=== PATIENT | female | born 1970 | race African-American/Black ===

== ENCOUNTER 2019-10-21 13:02 | Emergency (ER) | payer OTHER ==
[~2019-10-21] VITALS: Ht 160 cm; Wt 127.5 kg
[2019-10-21 13:16] VITALS: BP 127/52; TEMP 97.7
[2019-10-21 14:21] LABS: POTASSIUM 4.2 mmol/L (3.6-5.2); SODIUM 133 mmol/L (136-145)
[2019-10-21 14:23] LABS: PLATELET COUNT 330 K/uL (152-353)
== END 2019-10-21 16:05 | disposition home or self-care (01) ==
LOC: ED 13:02
PROVIDERS: Family Medicine
DX: D64.89 Other specified anemias (principal); R53.83 Other fatigue
CPT/HCPCS: 80053; 81000; 83880; 84484; 85027; 93005; 99284